=== PATIENT | female | born 1975 | race Caucasian/White ===

== ENCOUNTER 2019-06-01 15:00 | Emergency (ER) | payer OTHER, SELFPAY ==
[2019-06-01 15:42] VITALS: BP 117/68; PULSE 103; RESP 20; TEMP 37.1; O2SAT 98
--- NOTE | 2019-06-01 16:32 | ED.URI ---
HPI - URI/Sore Throat General Chief Complaint: Upper Respiratory Infection Stated Complaint: deep heavy cough Time Seen by Provider: 06/01/19 16:21 Source: patient and RN notes reviewed Mode of arrival: ambulatory Limitations: no limitations History of Present Illness HPI Narrative: Patient presents today complaining of a one-week history of severe cough that is occasionally productive, body aches and fatigue, shortness of breath and wheezing at night.Denies history of asthma or COPD. Denies fever. She has been taking Tylenol, Dimetapp, and Mucinex with some relief. She is a non-smoker. MD elicited complaint: cough Related Data Home Medications Medication Instructions Recorded Confirmed lamotrigine [Lamictal] 75 mg PO DAILY 06/01/19 06/01/19 mag [id number] rt xt 1 tablet PO DAILY 06/01/19 06/01/19 phentermine 8 mg PO TID 06/01/19 06/01/19 topiramate 25 mg PO DAILY 06/01/19 06/01/19 venlafaxine [Effexor XR] 37.5 mg PO DAILY 06/01/19 06/01/19 Allergies Allergy/AdvReac Type Severity Reaction Status Date / Time codeine Allergy Unknown itching Verified 06/01/19 16:17 potassium Allergy Unknown angio edema Verified 06/01/19 16:17 promethazine AdvReac Unknown Unknown Verified 06/01/19 16:17 BUTORPHANOL TARTRATE Allergy Unknown hallucinati Uncoded 01/05/17 11:10 ons CEFTRIAXONE SODIUM Allergy Unknown anaphylaxis Uncoded 01/05/17 11:10 PROCAINE HCL Allergy Unknown Anaphylactic Uncoded 01/05/17 11:10 Shock METOCLOPRAMIDE HCL AdvReac Unknown Unknown Uncoded 06/01/19 16:17 Review of Systems Review of Systems: Narrative: CONSTITUTIONAL: Denies fever, chills, or sweats.+Body aches, fatigue EYES: Denies visual changes, redness, or discharge. ENT: Denies rhinorrhea, congestion, sore throat, or otalgia. CARDIOVASCULAR: Denies chest pain, palpitations, or edema. RESPIRATORY: +Cough, shortness of breath, wheezing GASTROINTESTINAL: Denies abdominal pain, nausea, vomiting, or diarrhea. GENITOURINARY: Denies dysuria or hematuria. SKIN: Denies rash, itching, or wounds. MUSCULOSKELETAL: Denies back pain, joint pain, or myalgia. NEUROLOGIC: Denies headache, numbness, tingling, or weakness. PSYCH: Denies depression or anxiety. PMFSH Comments At time of signature, I have reviewed and agree with nursing past medical, surgical, social and family history unless otherwise noted. Please see nursing chart for further information. There is no relevant family history pertinent to the presenting complaint Exam Narrative: Exam Narrative: GENERAL: Mildly ill-appearing, well-nourished, and in no acute distress. HEAD: Normocephalic, atraumatic. EYES: EOMI. No redness or drainage. Conjunctivae normal. ENT: Mucous membranes pink and moist. Nares clear. No rhinorrhea. TMs normal bilaterally. Throat normal. Uvula midline. NECK: Normal AROM. Supple. No lymphadenopathy. CHEST: No respiratory distress. Clear to auscultation.Frequent harsh cough noted. HEART: Regular rate and rhythm. No murmur appreciated. Normal peripheral pulses. EXTREMITIES: Normal range of motion. No edema. SKIN: Warm, dry, no rash. NEURO: No focal deficits. Alert and oriented x3. Gait steady. PSYCH: Normal affect. No signs of depression or anxiety. Course Vital Signs Vital signs: Vital Signs Temperature 98.7 F 06/01/19 15:42 Pulse Rate 103 H 06/01/19 15:42 Respiratory Rate 06/01/19 15:42 Blood Pressure 117/68 06/01/19 15:42 Pulse Oximetry 98 06/01/19 15:42 Temperature 98.7 F 06/01/19 15:42 Pulse Rate 103 H 06/01/19 15:42 Respiratory Rate 06/01/19 15:42 Blood Pressure 117/68 06/01/19 15:42 Pulse Oximetry 98 06/01/19 15:42 Reviewed MDM - URI/Sore Throat Differential Diagnosis Differential diagnosis: Likely upper respiratory infection and bronchitis Critical Care Time Critical Care Time Critical Care Time: No Discharge Plan Discharge Clinical Impression: Bronchitis Patient Disposition: Home, Self-Car
== END 2019-06-01 16:40 | disposition home or self-care (01) ==
PROVIDERS: Emergency Provider Nurse Practitioner
DX: J40 Bronchitis, not specified as acute or chronic (principal); M79.7 Fibromyalgia; N80.9 Endometriosis, unspecified; F41.9 Anxiety disorder, unspecified; F31.9 Bipolar disorder, unspecified; M19.90 Unspecified osteoarthritis, unspecified site
CPT/HCPCS: 99213; G0463

== ENCOUNTER 2019-06-29 17:03 | Emergency (ER) | payer OTHER, SELFPAY ==
[2019-06-29 17:07] VITALS: BP 143/72; PULSE 107; RESP 20; TEMP 37.6; O2SAT 99
--- NOTE | 2019-06-29 17:08 | ED.ANXIETY ---
HPI - Anxiety General Chief Complaint: Anxiety Stated Complaint: anxiety Time Seen by Provider: 06/29/19 17:08 Source: patient and RN notes reviewed History of Present Illness HPI narrative: Patient is a 43-year-old female that presents the urgent care with complaints of severe anxiety due to coronavirus and store is closing. Patient states that she has 3 kids to take care of at home and is made her extremely anxious. Patient does have a history of anxiety, depression, bipolar disorder. Patient states that she called her PCP and her counselor and they were unable to see her. Patient is very tearful and anxious. No other acute complaints. Patient read the plan of care. Related Data Home Medications Medication Instructions Recorded Confirmed lamotrigine [Lamictal] 75 mg PO DAILY 06/01/19 06/01/19 mag [id number] rt xt 1 tablet PO DAILY 06/01/19 06/01/19 phentermine 8 mg PO TID 06/01/19 06/01/19 topiramate 25 mg PO DAILY 06/01/19 06/01/19 venlafaxine [Effexor XR] 37.5 mg PO DAILY 06/01/19 06/01/19 quetiapine 200 mg PO HS 06/29/19 06/29/19 quetiapine 400 mg PO HS 06/29/19 06/29/19 Allergies Allergy/AdvReac Type Severity Reaction Status Date / Time codeine Allergy Unknown itching Verified 06/29/19 17:34 potassium Allergy Unknown angio edema Verified 06/29/19 17:34 promethazine AdvReac Unknown Unknown Verified 06/29/19 17:34 BUTORPHANOL TARTRATE Allergy Unknown hallucinati Uncoded 06/29/19 17:34 ons CEFTRIAXONE SODIUM Allergy Unknown anaphylaxis Uncoded 06/29/19 17:34 PROCAINE HCL Allergy Unknown Anaphylactic Uncoded 06/29/19 17:34 Shock METOCLOPRAMIDE HCL AdvReac Unknown Unknown Uncoded 06/29/19 17:34 Review of Systems Review of Systems: Narrative: CONSTITUTIONAL: Denies fever, chills, or sweats. EYES: Denies visual changes, redness, or discharge. ENT: Denies rhinorrhea, congestion, sore throat, or otalgia. CARDIOVASCULAR: Denies chest pain, palpitations, or edema. RESPIRATORY: Denies cough or dyspnea. GASTROINTESTINAL: Denies abdominal pain, nausea, vomiting, or diarrhea. GENITOURINARY: Denies dysuria or hematuria. SKIN: Denies rash or itching. MUSCULOSKELETAL: Denies back pain, joint pain, or myalgia. NEUROLOGIC: Denies headache, numbness, or weakness. Psychiatric: Reports of severe anxiety All other systems reviewed are negative, except as documented in HPI. PMFSH Comments At the time of my signature, I reviewed and agree with the nursing past medical, surgical, social, and family history. There is no relevant family history pertinent to the patient complaint. Exam Narrative: Exam Narrative: GENERAL: This is a well-nourished, well-developed patient, tearful and very anxious HEAD: normocephalic, atraumatic. EYES: PERRL. Sclera clear/white. Vision is grossly intact. EARS: External ears normal NOSE: External nose normal with no obvious nasal discharge THROAT: Mucous membranes moist NECK: Neck supple CARDIOVASCULAR: Regular rate and rhythm without murmurs, gallops, or rubs. RESPIRATORY: Clear to auscultation. Breath sounds equal bilaterally. No wheezes, rales, or rhonchi. SKIN: warm, intact with no suspicious lesions or rash, good texture and turgor. NEURO: awake, alert, and oriented to person, place and time. There were no obvious focal neurologic abnormalities. EXTREMITIES: No clubbing, cyanosis, or edema. Course Vital Signs Vital signs: Vital Signs Temperature 99.7 F H 06/29/19 17:07 Pulse Rate 107 H 06/29/19 17:07 Respiratory Rate 20 06/29/19 17:07 Blood Pressure 143/72 H 06/29/19 17:07 Pulse Oximetry 99 06/29/19 17:07 Temperature 99.7 F H 06/29/19 17:07 Pulse Rate 107 H 06/29/19 17:07 Respiratory Rate 20 06/29/19 17:07 Blood Pressure 143/72 H 06/29/19 17:07 Pulse Oximetry 99 06/29/19 17:07 Reviewed-patient is informed that they may have pre-hypertension or hypertension based on a blood pressure reading in the department. I recommend the patient call the [facility]
== END 2019-06-29 17:25 | disposition home or self-care (01) ==
PROVIDERS: Emergency Provider Nurse Practitioner Family
DX: F41.9 Anxiety disorder, unspecified (principal); M19.90 Unspecified osteoarthritis, unspecified site; M79.7 Fibromyalgia; N80.9 Endometriosis, unspecified; F31.9 Bipolar disorder, unspecified; G40.909 Epilepsy, unspecified, not intractable, without status epilepticus
CPT/HCPCS: 99211; G0463

== ENCOUNTER 2019-07-03 08:47 | Emergency (ER) | payer OTHER, SELFPAY ==
[2019-07-03 08:56] VITALS: BP 108/70; PULSE 107; RESP 20; TEMP 36.7; O2SAT 96
--- NOTE | 2019-07-03 09:12 | ED.URI ---
HPI - URI/Sore Throat General Chief Complaint: Upper Respiratory Infection Stated Complaint: Cough/shortness of breath Time Seen by Provider: 07/03/19 09:12 Source: patient Mode of arrival: ambulatory Limitations: no limitations History of Present Illness HPI Narrative: Neeta Case is a 43 yo female with a history of depression who came for assessment of cough x 1 week. She has been in to be seen here before. Related Data Home Medications Medication Instructions Recorded Confirmed lamotrigine [Lamictal] 75 mg PO DAILY 06/01/19 06/29/19 mag [id number] rt xt 1 tablet PO DAILY 06/01/19 06/29/19 phentermine 8 mg PO TID 06/01/19 06/29/19 topiramate 25 mg PO DAILY 06/01/19 06/29/19 venlafaxine [Effexor XR] 37.5 mg PO DAILY 06/01/19 06/29/19 quetiapine 200 mg PO HS 06/29/19 06/29/19 quetiapine 400 mg PO HS 06/29/19 06/29/19 Allergies Allergy/AdvReac Type Severity Reaction Status Date / Time codeine Allergy Unknown itching Verified 07/03/19 09:32 potassium Allergy Unknown angio edema Verified 07/03/19 09:32 procaine Allergy Anaphylactic Verified 07/03/19 10:08 Shock promethazine AdvReac Unknown Unknown Verified 07/03/19 09:32 BUTORPHANOL TARTRATE Allergy Unknown hallucinati Uncoded 06/29/19 17:34 ons CEFTRIAXONE SODIUM Allergy Unknown anaphylaxis Uncoded 06/29/19 17:34 PROCAINE HCL Allergy Unknown Anaphylactic Uncoded 06/29/19 17:34 Shock METOCLOPRAMIDE HCL AdvReac Unknown Unknown Uncoded 06/29/19 17:34 Review of Systems Review of Systems: Narrative: CONSTITUTIONAL: Denies fever, chills, sweats. EYES: Denies visual changes, redness, discharge. ENT: Denies rhinorrhea, congestion, sore throat, otalgia. CARDIOVASCULAR: Denies chest pain, palpitations, edema. RESPIRATORY: Denies dyspnea, wheezing, assessment of cough GASTROINTESTINAL: Denies abdominal pain, nausea, vomiting, diarrhea. GENITOURINARY: Denies dysuria, hematuria, abnormal discharge SKIN: Denies rash or itching. NEUROLOGIC: Denies numbness, or focal weakness. PSYCHIATRIC: Denies anxiety or depression. [facility] Social History Social History (Updated 07/03/19 @ 09:20 by Suzanne Rodriguez CNP) Occupation/Education: occupation Additional occupation/education comments: [employer] Comments At time of signature, I agree with nursing past medical, surgical, social and family history. There is no relevant family history pertinent to the presenting complaint. Exam Narrative: Exam Narrative: Patient sitting in her room with no mask on; states that she has a cough and that she needs not to go to work. She works at [employer] and she is going to be coughing on food. Stated we are waiting for results of his flu swab. 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 I stated that we should wait to the results of the flu swab and left the room Course Course Emergency Course: Patient left because she did not want to wait for the flu results and was angry that I was not going to continue this discussion about why she should not have to go to work Vital Signs Vital signs: Vital Signs Temperature 98.1 F 07/03/19 08:56 Pulse Rate 107 H 07/03/19 08:56 Respiratory Rate 20 07/03/19 08:56 Blood Pressure 108/70 07/03/19 08:56 Pulse Oximetry 96 07/03/19 08:56 Temperature 98.1 F 07/03/19 08:56 Pulse Rate 107 H 07/03/19 08:56 Respiratory Rate 20 07/03/19 08:56 Blood Pressure 108/70 07/03/19 08:56 Pulse Oximetry 96 07/03/19 08:56 MDM - URI/Sore Throat Lab Data Labs: Influenza A Screen Negative Reference Range: Negative Influenza B Screen Negative Reference Range: Negative Discharge Plan Discharge Clinical Impression: Cough Patient Disposition: Left Against Medical Advice
== END 2019-07-03 09:20 | disposition left against medical advice (07) ==
PROVIDERS: Emergency Provider Nurse Practitioner
DX: R05 Cough (principal); G40.909 Epilepsy, unspecified, not intractable, without status epilepticus; M19.90 Unspecified osteoarthritis, unspecified site; M79.7 Fibromyalgia; N80.9 Endometriosis, unspecified; F41.0 Panic disorder [episodic paroxysmal anxiety]; F31.9 Bipolar disorder, unspecified
CPT/HCPCS: 87804; 99212; G0463

== ENCOUNTER 2019-09-29 16:05 | Emergency (ER) | payer OTHER, SELFPAY ==
[2019-09-29 16:15] VITALS: BP 121/74; PULSE 86; RESP 20; TEMP 37.1; O2SAT 98
--- NOTE | 2019-09-29 16:26 | ED.WOUNDLAC ---
HPI - Wound/Laceration General Chief Complaint: Wound/Laceration Stated Complaint: cut on left ring finger Time Seen by Provider: 09/29/19 16:45 Source: patient and RN notes reviewed Mode of arrival: ambulatory Limitations: no limitations History of Present Illness HPI narrative: 44-year-old female presents with concern for laceration to the tip of her third digit of her left finger that she sustained on a meat scrubber while at work prior to arrival. She reports a large amount of bleeding that has slowed down. She is not sure of her last tetanus shot. Extremity Location: Left: hand Related Data Home Medications Medication Instructions Recorded Confirmed lamotrigine [Lamictal] 75 mg PO DAILY 06/01/19 07/03/19 mag [id number] rt xt 1 tablet PO DAILY 06/01/19 07/03/19 phentermine 8 mg PO TID 06/01/19 07/03/19 topiramate 25 mg PO DAILY 06/01/19 07/03/19 venlafaxine [Effexor XR] 37.5 mg PO DAILY 06/01/19 07/03/19 quetiapine 200 mg PO HS 06/29/19 07/03/19 quetiapine 400 mg PO HS 06/29/19 07/03/19 Allergies Allergy/AdvReac Type Severity Reaction Status Date / Time codeine Allergy Unknown itching Verified 07/03/19 09:32 potassium Allergy Unknown angio edema Verified 07/03/19 09:32 procaine Allergy Anaphylactic Verified 07/03/19 10:08 Shock promethazine AdvReac Unknown Unknown Verified 07/03/19 09:32 BUTORPHANOL TARTRATE Allergy Unknown hallucinati Uncoded 06/29/19 17:34 ons CEFTRIAXONE SODIUM Allergy Unknown anaphylaxis Uncoded 06/29/19 17:34 PROCAINE HCL Allergy Unknown Anaphylactic Uncoded 06/29/19 17:34 Shock METOCLOPRAMIDE HCL AdvReac Unknown Unknown Uncoded 06/29/19 17:34 Review of Systems Review of Systems: Narrative: CONSTITUTIONAL: Denies malaise, chills, sweats, or fever. SKIN: Denies rash or itching. MUSCULOSKELETAL: Denies decreased range of motion, decreased strength NEUROLOGIC: Denies numbness, weakness. All systems reviewed & are unremarkable except as noted in HPI and below PMFSH Social History Social History (Updated 07/03/19 @ 09:20 by Suzanne Rodriguez CNP) Additional occupation/education comments: [employer] Comments At time of signature, agree with nursing past medical, surgical, social and family history. There is no relevant family history pertinent to the presenting complaint Exam Narrative: Exam Narrative: GENERAL: Well-appearing, well-nourished, and in no acute distress. HEAD: Normocephalic EYES: PERRLA, conjunctivae clear ENT: Nares clear. Mucous membranes moist. NECK: Supple. CHEST: No respiratory distress. Speaks in full sentences. EXTREMITIES: Normal range of motion. No edema. Normal strength and sensation. SKIN: Warm, dry. Skin avulsion noted to the tip of the third digit of the left hand approximately 0.75 cm diameter Musculoskeletal: Third digit of left hand has normal strength and sensation. 5/5 strength with digit flexion, extension. Range of motion normal. No clubbing, cyanosis, or edema noted. No tenderness. Skin intact. Normal digital cascade with flexion of fingers, median, ulnar and radial nerve intact. Normal sensation of each side of finger. Can perform 'okay' sign, 'cross over finger test of index and middle fingers' and 'thumbs up' sign. No scissoring. Normal thumb opposition. Good capillary refill and radial pulse. Distal capillary refill <3 seconds. NEURO: Alert and oriented x3. PSYCH: Normal mood and affect Course Course Emergency Course: Surgicel applied to wound, finger elevated, hemostasis achieved. Tube dressing applied to digit. Patient is aware of diagnosis, understands and agrees to treatment plan. Anticipatory guidance given. Patient agrees to follow-up as directed and is aware of reasons to seek care at the emergency department. Portions of this record may have been created with voice recognition software Vital Signs Vital signs: Vital Signs Temperature 98.8 F 09/29/19 16:15 Pulse Rate 86 09/29/19 16:15 Respiratory Rate
--- NOTE | 2019-09-29 18:09 | PC.NURSE ---
1712- boostrix vaccine given to patient, in right deltoid, boostrix 0.5mL IM given, lot number [id number], expiration 11/20/2020, and manufacture is [employer].
== END 2019-09-29 17:30 | disposition home or self-care (01) ==
PROVIDERS: Emergency Provider Nurse Practitioner; PCP Nurse Practitioner Family
DX: S61.213A Laceration without foreign body of left middle finger without damage to nail, initial encounter (principal); Z23 Encounter for immunization; Z87.442 Personal history of urinary calculi; Z87.440 Personal history of urinary (tract) infections; M35.2 Behcet's disease; F41.0 Panic disorder [episodic paroxysmal anxiety]; W29.0XXA Contact with powered kitchen appliance, initial encounter
CPT/HCPCS: 12001; 90471; 90715; 99212; G0463

== ENCOUNTER 2020-03-24 14:34 | Outpatient (CLI) | payer OTHER, SELFPAY ==
--- NOTE | ~2020-03-24 | US_ITS ---
EXAMINATION: US joint non vasc ltd LT, US joint non vasc ltd RT DATE: 03/24/2020 15:12 INDICATION: Localized swelling, mass and lump at the left and right arms TECHNIQUE: Multiple grayscale and Doppler ultrasound images of the regions of concern at the bilatera l arms were obtained. COMPARISON: None FINDINGS: There are multiple ovoid masses corresponding to the palpable abnormalities of concern which demonstr ate slightly higher echogenicity with similar echotexture to the surrounding fat. The mass in the rig ht arm measures 1.9 x 0.9 x 1.4 cm. There are 5 mass at the left arm which measure 3.0 x 2.2 x 1.4 cm , 2.9 x 1.5 x 1.9 cm, 2.6 x 1.0 x 2.3 cm, 1.2 x 0.6 x 1.0 cm and 7 x 5 x 7 mm. IMPRESSION: 1. Multiple ovoid subcutaneous masses with similar echotexture and slightly increased echogenicity to the surrounding fat which is nonspecific but consistent with and statistically most likely to repres ent lipomas. Reviewed, dictated and finalized at location A. FING MGR IMPRESSION: 1. Multiple ovoid subcutaneous masses with similar echotexture and slightly inc reased echogenicity to the surrounding fat which is nonspecific but consistent with and statistically most likely to represent lipomas.
== END 2020-03-24 14:35 | disposition home or self-care (01) ==
PROVIDERS: PCP Nurse Practitioner Family; Visit Provider Nurse Practitioner
DX: M79.89 Other specified soft tissue disorders (principal)
CPT/HCPCS: 76882

== ENCOUNTER 2020-04-27 08:52 | Outpatient (CLI) | payer OTHER, SELFPAY ==
--- NOTE | ~2020-04-27 | MM_ITS ---
EXAMINATION: MM scrn susan implant BI w nikhil HISTORY: Screening mammogram TECHNIQUE: Craniocaudal and mediolateral oblique 3-D tomosynthesis images with implant displacement a nd synthetic 2-D images were generated. Craniocaudal and mediolateral oblique views of the breasts wi thout implant displacement were obtained using full field digital mammography. CAD analysis was submi tted and interpreted. COMPARISON: No prior mammogram is available for comparison at this institution. BREAST PARENCHYMAL COMPOSITION: The breasts are heterogeneously dense, which may obscure small masses . FINDINGS: There are bilateral subglandular saline implants. There is no evidence of suspicious mass, calcification, or architectural distortion to suggest malignancy in either breast. There has been no suspicious interval change. IMPRESSION: 1. No mammographic evidence of malignancy. 2. Recommend routine screening mammography in one year. BI-RADS Category 1: Negative Reviewed, dictated and finalized at location A. E SUPERVISOR
== END 2020-04-27 08:53 | disposition home or self-care (01) ==
LOC: ANHIMG 08:57
PROVIDERS: PCP Nurse Practitioner Family; Visit Provider Obstetrics & Gynecology
DX: Z12.31 Encounter for screening mammogram for malignant neoplasm of breast (principal)
CPT/HCPCS: 77063; 77067

== ENCOUNTER → 2020-05-09 12:59 | Outpatient (REF) | payer OTHER, SELFPAY | LOC: ANHLAB 12:59 | PROVIDERS: PCP Nurse Practitioner Family; Visit Provider Nurse Practitioner | DX: R22.9 Localized swelling, mass and lump, unspecified (principal) | CPT/HCPCS: 88304 ==

== ENCOUNTER 2020-09-03 08:02 | Emergency (ER) | payer OTHER, SELFPAY ==
--- NOTE | 2020-09-03 08:08 | ED.BACK ---
HPI - Back Pain/Injury General Chief Complaint: Back Pain/Injury Stated Complaint: lower back pain and down right side Time Seen by Provider: 09/03/20 08:08 Source: patient and RN notes reviewed Mode of arrival: ambulatory Limitations: no limitations History of Present Illness HPI Narrative: 44-year-old female presents to the [facility] with complaints of lower back pain radiating down right leg. Patient states that she got on a stationary bike on Saturday, 1 week ago and has had increased pain since. Called her primary was told to alternate ice and heat, take Flexeril and naproxen and do some stretching. Patient has done everything but states that she is still having discomfort in the right lower back. Walks with a normal gait. No chest pain or abdominal pain. No loss or retention of bowel or bladder. No midline tenderness. When SI joint area is palpated increased pain shooting down lateral aspect of leg Related Data Home Medications Medication Instructions Recorded Confirmed lamotrigine 100 mg tablet 100 mg PO DAILY tablet 03/01/20 09/03/20 trazodone 50 mg tablet 100 mg PO DAILY tablet 03/01/20 09/03/20 Allergies Allergy/AdvReac Type Severity Reaction Status Date / Time codeine Allergy Unknown itching Verified 09/03/20 08:13 potassium Allergy Unknown angio edema Verified 09/03/20 08:13 procaine Allergy Anaphylactic Verified 09/03/20 08:13 Shock promethazine AdvReac Unknown Unknown Verified 09/03/20 08:13 BUTORPHANOL TARTRATE Allergy Unknown hallucinati Uncoded 03/01/20 11:02 ons CEFTRIAXONE SODIUM Allergy Unknown anaphylaxis Uncoded 03/01/20 11:02 PROCAINE HCL Allergy Unknown Anaphylactic Uncoded 03/01/20 11:02 Shock METOCLOPRAMIDE HCL AdvReac Unknown Unknown Uncoded 03/01/20 11:02 Review of Systems Review of Systems: All systems reviewed & are unremarkable except as noted in HPI and below Constitutional: Constitutional: Reports no additional constitutional complaints Eyes: Eyes: Reports no additional eye complaints Cardiovascular: Cardiovascular: Reports no additional cardiovascular complaints and Denies chest pain Respiratory: Respiratory: Reports no additional respiratory complaints, Denies cough and Denies dyspnea Gastrointestinal: Gastrointestinal: Reports no additional gastrointestinal complaints, Denies abdominal pain, Denies nausea and Denies vomiting Genitourinary: Genitourinary: Reports no additional female genitourinary complaints, Denies nocturia, Denies pelvic pain and Denies urinary incontinence Musculoskeletal: Musculoskeletal: Reports back pain (Right lower) Integumentary/Breasts: Skin/Breast: Reports system reviewed and no additional complaints, except as docu Neurologic: Reports system reviewed and no additional complaints, except as documented, Denies dizziness, Denies headache(s), Denies focal weakness, Denies numbness and Denies weakness Psychiatric: Psychiatric: Reports no additional psychiatric complaints PMFSH Surgical History Surgical History History of breast augmentation 1994 Hx of foot surgery left foot 2010 Social History Social History Smoking status: Former smoker Alcohol intake: never Substance use: never Substance use type: does not use Additional occupation/education comments: [employer] Comments At the time of my signature, I reviewed and agree with the nursing past medical, surgical, social, and family history. There is no relevant family history pertinent to the patient complaint. Exam Const: General: healthy appearing, no acute distress and alert Nutritional Appearance: well nourished and obese Orientation/consciousness: patient oriented x3 Limitations: no limitations HENMT: Head: normal to inspection Neck: Neck: normal visual inspection Chest: Chest palpation & inspection: normal inspection of the chest Resp: Effort & Inspection
[2020-09-03 08:09] VITALS: BP 117/72; PULSE 93; RESP 18; TEMP 37; O2SAT 99
== END 2020-09-03 08:35 | disposition home or self-care (01) ==
PROVIDERS: Emergency Provider Nurse Practitioner; PCP Nurse Practitioner Family
DX: M54.41 Lumbago with sciatica, right side (principal)
CPT/HCPCS: 99213; G0463

== ENCOUNTER 2021-05-29 08:24 | Outpatient (CLI) | payer OTHER, SELFPAY ==
--- NOTE | ~2021-05-29 | MM_ITS ---
EXAMINATION: MM scrn susan implant BI w nikhil HISTORY: Screening mammogram TECHNIQUE: Craniocaudal and mediolateral oblique 3-D tomosynthesis images with implant displacement a nd synthetic 2-D images were generated. Craniocaudal and mediolateral oblique views of the breasts wi thout implant displacement were obtained using full field digital mammography. CAD analysis was submi tted and interpreted. COMPARISON: Comparison to multiple prior studies sequentially, with oldest reviewed study dated 03/15. BREAST PARENCHYMAL COMPOSITION: There are scattered areas of fibroglandular density. FINDINGS: There is no evidence of suspicious mass, calcification, or architectural distortion to sugg est malignancy in either breast. There has been no suspicious interval change. IMPRESSION: 1. No mammographic evidence of malignancy. 2. Recommend routine screening mammography in one year. BI-RADS Category 1: Negative Reviewed, dictated and finalized at location A. IC ADMINISTRATION PROFESSOR
== END 2021-05-29 08:25 | disposition home or self-care (01) ==
LOC: ANHIMG 08:28
PROVIDERS: PCP Nurse Practitioner Family; Visit Provider Nurse Practitioner Family
DX: Z12.31 Encounter for screening mammogram for malignant neoplasm of breast (principal)
CPT/HCPCS: 77063; 77067

== ENCOUNTER 2021-08-09 10:53 | Outpatient (RCR) | payer OTHER, SELFPAY ==
--- NOTE | 2021-08-09 12:36 | PTOPEVAL ---
PHYSICAL THERAPY EVALUATION AND PLAN OF CARE 08-09-21 Thank you for referring Neeta Case to [facility] for the diagnosis of L shoulder pain. She is scheduled to be seen for therapy? 1x/week for 5 weeks. 2x/wk was recommended, but due to transportation issues, she requested 1x/wk. Please review, sign, date and return this plan of care RASHAD. I agree with and certify that the following plan of care is medically necessary. 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 Hx Arthritis Yes: R knee; fingers Hx Back Injury Yes Hx Back Pain Yes Hx Fractures Yes: ribs, L foot Hx Other Musculoskeletal Disorders Yes: bechets syndrome, neck pain Endocrine History Hx Endocrine Disorders No Significant History HEENT History Hx HEENT Disorders No Significant History Reproductive History Hx Tubal Ligation Yes Hx Other Reproductive Disorders Yes: rt oopherectomy, ectopic Psychosocial History Hx Anxiety Yes: panic attacks Hx Bipolar Disorder Yes: meds Hx Depression Yes: meds Evaluation Information Problem Diagnosis L shoulder pain Onset Jan 2021 Subjective Information order for PT is dated Feb 2021 Query Text:As Reported By Patient/ ; gradual increase in pain, Family without injury or trauma to shoulder Diagnostic Tests X-Rays For This Problem No MRI For This Problem No Other Tests For This Problem No Previous Treatments Previous Treatments For This Problem no PT for shoulder Prior Level of Function Activity Level (Last 3 Months) 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
--- NOTE | 2021-08-16 08:25 | PCPTNOTE ---
Patient did not show up for scheduled appointment this date. Called & had to leave a message.
--- NOTE | 2021-08-23 09:17 | PCPTNOTE ---
Patient did not show up for scheduled appointment this date. Called and had to leave a message.
--- NOTE | 2021-09-06 09:15 | PCPTNOTE ---
pt did not show for 3 appointments, called her and left a voice message that her last appt was canceled and she will be discharged, unless she calls back in the next few days to reschedule.
--- NOTE | 2021-09-21 14:10 | PCPTNOTE ---
PHYSICAL THERAPY DISCHARGE 09-21-21 Attending Provider: Suzanne Pablo, MANAGER [employer] Patient:Neeta Case Date of :1975 Neeta has not returned for any further treatments since the initial evaluation on 08/09/2021, for L shoulder pain, therefore she will be discharged at this time. She did not show for 3 scheduled appointments. Thank you for referring this patient to [facility]. Please review, sign, date and return this discharge summary RASHAD. I have been updated about the patient's current status and I agree with discharge from the above service at this time. Referring Physician Date
== END 2021-09-22 09:48 | disposition home or self-care (01) ==
LOC: ANHPT 10:53
PROVIDERS: PCP Nurse Practitioner Family; Visit Provider Nurse Practitioner Family
DX: M25.512 Pain in left shoulder (principal)
CPT/HCPCS: 97161

== ENCOUNTER 2022-06-06 17:29 | Emergency (ER) | payer OTHER, SELFPAY ==
--- NOTE | ~2022-06-06 | XR_ITS ---
EXAM: XR foot LT min 3V DATE: 06/06/2022 17:42 HISTORY: HX 5TH METATARSAL FX X 11YRS,NKI, LATERAL FOOT PAIN . COMPARISON: None available. FINDINGS: Normal mineralization. Old fifth metatarsal fracture. No acute fracture or dislocation. No lytic or blastic lesion. Mild scattered degenerative changes. Achilles enthesopathy. No erosion or p eriosteal change. Soft tissues within normal limits. IMPRESSION: No acute osseous finding in the left foot. Reviewed, dictated and finalized at location K. [employer]
[2022-06-06 17:34] VITALS: BP 149/81; PULSE 90; RESP 16; TEMP 37.4; O2SAT 98
--- NOTE | 2022-06-06 17:34 | ED.LOWEXIN ---
HPI - Extremity Injury (Lower) General Chief Complaint: Extremity Injury, Lower Stated Complaint: Left Foot Pain Source: patient and RN notes reviewed History of Present Illness HPI Narrative: 46 yo F presents to urgent care with complaints of left 5th metatarsal pain x 2 days. Pt states she broke this bone and had to have surgery 11 years ago after unknown injury. Pt states she has had no known injury 2 days ago. Reports worsening pain with standing and applying pressure. Denies any other complaints. Pt has taken Naproxen for her pain. Related Data Home Medications Medication Instructions Recorded Confirmed buspirone 10 mg tablet 10 mg PO BID 06/06/22 06/06/22 cyclobenzaprine 10 mg tablet 10 mg PO TID PRN Pain 06/06/22 06/06/22 diclofenac sodium 50 mg 50 mg PO BID PRN Pain 06/06/22 06/06/22 tablet,delayed release lamotrigine 100 mg tablet 100 mg PO DAILY 06/06/22 06/06/22 naproxen 500 mg tablet 500 mg PO BID PRN Pain 06/06/22 06/06/22 Allergies Allergy/AdvReac Type Severity Reaction Status Date / Time codeine Allergy Unknown itching Verified 06/06/22 17:50 potassium Allergy Unknown angio edema Verified 06/06/22 17:50 procaine Allergy Anaphylactic Verified 06/06/22 17:50 Shock promethazine AdvReac Unknown Unknown Verified 06/06/22 17:50 BUTORPHANOL TARTRATE Allergy Unknown hallucinati Uncoded 06/06/22 17:50 ons CEFTRIAXONE SODIUM Allergy Unknown anaphylaxis Uncoded 06/06/22 17:50 PROCAINE HCL Allergy Unknown Anaphylactic Uncoded 06/06/22 17:50 Shock METOCLOPRAMIDE HCL AdvReac Unknown Unknown Uncoded 06/06/22 17:50 Review of Systems Review of Systems: CONSTITUTIONAL: Denies fever, chills, or sweats. EYES: Denies visual changes, redness, or discharge. ENT: Denies otalgia and sore throat CARDIOVASCULAR: Denies chest pain, palpitations, or edema. RESPIRATORY: Denies cough or dyspnea. GASTROINTESTINAL: Denies abdominal pain, nausea, vomiting, or diarrhea. GENITOURINARY: Denies dysuria or hematuria. SKIN: Denies rash or itching. MUSCULOSKELETAL: left foot pain NEUROLOGIC: Denies headache, numbness, or weakness. [facility] Surgical History Surgical History History of breast augmentation 1994 Hx of foot surgery left foot 2010 Social History Social History Smoking status: Former smoker Alcohol intake: never Substance use: never Substance use type: does not use Occupation/Education: occupation Additional occupation/education comments: [employer] Comments At the time of my signature, I reviewed and agree with the nursing past medical, surgical, social, and family history. There is no relevant family history pertinent to the patient complaint. Exam Narrative: GENERAL: This is a well-nourished, well-developed patient, in no apparent distress. HEAD: normocephalic, atraumatic. EYES: Sclera clear/white. Vision is grossly intact. EARS: External ears normal. Hearing grossly intact. NOSE: External nose normal with no obvious nasal discharge, no rhinorrhea. THROAT: Mucous membranes moist, posterior pharynx clear. NECK: Neck supple, non-tender without lymphadenopathy, masses or thyromegaly. CARDIOVASCULAR: Regular rate. RESPIRATORY:No respiratory distress SKIN: warm, intact with no suspicious lesions or rash, good texture and turgor. NEURO: awake, alert, and oriented to person, place and time. There were no obvious focal neurologic abnormalities. EXTREMITIES: No clubbing, cyanosis, or edema. No joint tenderness, effusion, or edema noted. Course Course Level of Care: Express Care Visit Vital Signs Vital signs: Vital Signs Temperature 99.4 F 06/06/22 17:34 Pulse Rate 90 06/06/22 17:34 Respiratory Rate 16 06/06/22 17:34 Blood Pressure 149/81 H 06/06/22 17:34 Pulse Oximetry 98 06/06/22 17:34 Oxygen Delivery Room Air 06/06/22 17:34 Temperature 99.4 F
== END 2022-06-06 18:15 | disposition home or self-care (01) ==
PROVIDERS: Emergency Provider Nurse Practitioner Family; PCP Nurse Practitioner Family
DX: M79.672 Pain in left foot (principal); Z87.891 Personal history of nicotine dependence
CPT/HCPCS: 73630; 99213; G0463

== ENCOUNTER 2023-02-14 07:18 | Outpatient (CLI) | payer OTHER, SELFPAY ==
--- NOTE | ~2023-02-14 | MM_ITS ---
EXAMINATION: MM scrn susan implant BI w nikhil HISTORY: Screening mammogram TECHNIQUE: Craniocaudal and mediolateral oblique 3-D tomosynthesis images with implant displacement a nd synthetic 2-D images were generated. Craniocaudal and mediolateral oblique views of the breasts wi thout implant displacement were obtained using full field digital mammography. CAD analysis was submi tted and interpreted. COMPARISON: 05/29/2021, 04/27/2020, 04/01/2019 BREAST PARENCHYMAL COMPOSITION: There are scattered areas of fibroglandular density. FINDINGS: There is no evidence of suspicious mass, calcification, or architectural distortion to sugg est malignancy in either breast. There has been no suspicious interval change. IMPRESSION: 1. No mammographic evidence of malignancy. 2. Recommend routine screening mammography in one year. BI-RADS Category 1: Negative Reviewed, dictated and finalized at location A.
== END 2023-02-14 07:19 | disposition home or self-care (01) ==
LOC: CHSIMG 07:19
PROVIDERS: PCP Nurse Practitioner Family; Visit Provider Nurse Practitioner Family
DX: Z12.31 Encounter for screening mammogram for malignant neoplasm of breast (principal)
CPT/HCPCS: 77063; 77067